=== PATIENT | male | born 1960 | race Caucasian/White ===

== ENCOUNTER → 2016-07-17 | Outpatient (CLI) | payer MEDICARE, MEDICAID ==
[~2016-07-17] MED LIST: ASPIRIN 32325 MG/TAB PO; FLEXERIL 1010 MG/TAB PO; FLUOXETINE20 MG PO; LIPI MAX1 SGL PO; LORTAB 5/500 501 TAB PO; MULTIPLE VITAMI1 CAP PO; PREDNISONE10 MG PO; VITAMINC1000TA
== END ==
LOC: MHCPAIN 10:02
DX: G89.29 Other chronic pain (principal); M47.817 Spondylosis without myelopathy or radiculopathy, lumbosacral region; M54.16 Radiculopathy, lumbar region
CPT/HCPCS: G0463

== ENCOUNTER → 2016-07-28 | Outpatient (CLI) | payer MEDICARE, MEDICAID | LOC: MHCPAIN 11:33 | DX: G89.29 Other chronic pain (principal); M47.27 Other spondylosis with radiculopathy, lumbosacral region; M48.06 Spinal stenosis, lumbar region; Z87.891 Personal history of nicotine dependence | CPT/HCPCS: G0463 ==

== ENCOUNTER → 2016-08-03 | Outpatient (CLI) | payer MEDICARE, MEDICAID | LOC: MHCPAIN 09:43 | DX: M47.27 Other spondylosis with radiculopathy, lumbosacral region (principal) | CPT/HCPCS: J1100; Q9967 ==

== ENCOUNTER 2016-08-31 14:00 | Outpatient (RCR) | payer MEDICARE, MEDICAID | END 2016-10-30 | disposition still patient (30) | LOC: MKS.ESL.PT | DX: M47.26 Other spondylosis with radiculopathy, lumbar region (principal); G89.29 Other chronic pain | CPT/HCPCS: G8978-GP; G8979-GP ==

== ENCOUNTER → 2016-09-04 | Outpatient (CLI) | payer MEDICARE, MEDICAID | LOC: MHCPAIN 10:09 | DX: G89.29 Other chronic pain (principal); M47.27 Other spondylosis with radiculopathy, lumbosacral region; M48.06 Spinal stenosis, lumbar region | CPT/HCPCS: G0463 ==

== ENCOUNTER → 2016-09-14 | Outpatient (CLI) | payer MEDICARE, MEDICAID | LOC: MHCPAIN 09:27 | DX: M47.817 Spondylosis without myelopathy or radiculopathy, lumbosacral region (principal) | CPT/HCPCS: J1100; Q9967 ==

== ENCOUNTER → 2016-11-14 | Outpatient (CLI) | payer MEDICARE, MEDICAID | LOC: MHCPAIN 10:26 | DX: G89.29 Other chronic pain (principal); M47.817 Spondylosis without myelopathy or radiculopathy, lumbosacral region; M54.16 Radiculopathy, lumbar region | CPT/HCPCS: G0463 ==

== ENCOUNTER → 2016-11-23 | Outpatient (CLI) | payer MEDICARE, MEDICAID | LOC: MHCPAIN 08:48 | DX: M47.817 Spondylosis without myelopathy or radiculopathy, lumbosacral region (principal); M48.06 Spinal stenosis, lumbar region | CPT/HCPCS: J1100; Q9967 ==

== ENCOUNTER → 2017-01-24 | Outpatient (CLI) | payer MEDICARE, MEDICAID | LOC: MHCPAIN 09:17 | DX: G89.29 Other chronic pain (principal); M47.27 Other spondylosis with radiculopathy, lumbosacral region; Z87.891 Personal history of nicotine dependence; Z79.82 Long term (current) use of aspirin | CPT/HCPCS: G0463 ==

== ENCOUNTER 2017-03-15 15:19 | Observation (INO) | payer MEDICARE, MEDICAID ==
[~2017-03-15] VITALS: Ht 175.3 cm; Wt 68.2 kg
[2017-03-15 16:28] VITALS: BP 109/65; PULSE 87
[2017-03-15 16:53] LABS: ADJUSTED CALCIUM 9.2 mg/dL (8.4-10.2); ALBUMIN 4.1 gm/dL (3.5-5.0); BILIRUBIN,TOTAL 0.5 mg/dL (0.0-1.0); CALCIUM 9.3 mg/dL (8.4-10.2); CREATININE, serum 0.84 mg/dL (0.66-1.25); POTASSIUM 3.9 mmol/L (3.4-5.0); TOTAL PROTEIN 6.8 gm/dL (6.4-8.2)
[2017-03-15 17:00] LABS: BASO % 0.4 % (0.0-2.0); EOS # 0.1 (0.0-0.7); EOS % 0.8 % (0-4.0); GRAN # 5.7 (1.4-6.5); GRAN % 79.3 % (42.2-75.2); LYMPH # 0.8 (1.2-3.4); LYMPH % 10.6 % (20.0-51.0); MEAN CELL VOLUME 79 fl (80.0-100.0); MEAN CORPUSCULAR HGB CONC 32 g/dl (33.0-37.0); MONO # 0.6 (0.1-0.6); MONO % 8.6 % (1.7-9.3); PLATELET COUNT 326 K/mm3 (130-400); RED BLOOD COUNT 4.23 M/mm3 (4.20-5.60); WHITE BLOOD COUNT 7.2 K/mm3 (4.8-10.8)
[2017-03-15 17:01] LABS: HEMATOCRIT 33.3 % (42.0-52.0); HEMOGLOBIN 10.6 g/dl (13.5-18.0); MEAN CORPUSCULAR HEMOGLOBIN 25 pg (27.0-31.0)
[2017-03-15 19:56] VITALS: BP 121/64; PULSE 85; TEMP 98.1
[2017-03-15 22:41] LABS: HEMATOCRIT 28.1 % (42.0-52.0); HEMOGLOBIN 8.9 g/dl (13.5-18.0)
[2017-03-16 04:14] LABS: HEMATOCRIT 25.9 % (42.0-52.0); HEMOGLOBIN 8.2 g/dl (13.5-18.0)
[2017-03-16 05:19] VITALS: BP 105/60; PULSE 67; TEMP 97.8
[2017-03-16 09:48] VITALS: BP 105/66; PULSE 60; TEMP 97.8
[2017-03-16 10:06] LABS: HEMATOCRIT 28.2 % (42.0-52.0); HEMOGLOBIN 8.9 g/dl (13.5-18.0)
[2017-03-16 13:24] VITALS: BP 110/68; PULSE 85; TEMP 98
[2017-03-16 15:30] VITALS: BP 121/69; PULSE 70; TEMP 97.8
[2017-03-16 16:56] LABS: HEMATOCRIT 28.7 % (42.0-52.0)
== END 2017-03-16 17:45 | disposition home or self-care (01) ==
LOC: COL.ER 15:19 → SURG 18:51
PROVIDERS: Physician Assistant; Surgery
DX: K62.5 Hemorrhage of anus and rectum (principal); I95.1 Orthostatic hypotension; E78.00 Pure hypercholesterolemia, unspecified; D64.9 Anemia, unspecified
CPT/HCPCS: G0378; J2405; J7030; J7042

== ENCOUNTER 2017-11-26 09:41 | Inpatient (IN) | payer OTHER ==
[~2017-11-26] VITALS: Ht 175.4 cm; Wt 70.7 kg
[2017-12-19] VITALS (10 sets, daily range): BP systolic 115–147; BP diastolic 68–93; PULSE 74–80; TEMP 97.3–97.6
[2017-12-19] MEDS ORDERED: TURMERIC500 MG PO (06:55)
[2017-12-19] MEDS ORDERED: VITAMIN C500 MG PO (06:55)
[2017-12-19] MEDS ORDERED: LIPITOR 40MG TA40 MG PO (06:56)
[2017-12-20 01:05] VITALS: BP 124/74; PULSE 64; TEMP 97.5
[2017-12-20 04:00] VITALS: BP 119/74; PULSE 80; TEMP 98.5
[2017-12-20 07:31] LABS: HEMATOCRIT 42.6 % (42.0-52.0); HEMOGLOBIN 14.2 g/dl (13.5-18.0)
[2017-12-20 07:48] LABS: CALCIUM 9.1 mg/dL (8.4-10.2); CREATININE, serum 0.87 mg/dL (0.66-1.25); POTASSIUM 4.3 mmol/L (3.4-5.0)
[2017-12-20 08:47] VITALS: BP 121/72; PULSE 65; TEMP 98
[2017-12-20 16:39] VITALS: BP 128/72; PULSE 67; TEMP 97.9
[2017-12-20 20:14] VITALS: BP 127/77; PULSE 89; TEMP 97.7
[2017-12-21 00:03] VITALS: BP 107/84; PULSE 75; TEMP 98.5
[2017-12-21 04:22] VITALS: BP 114/71; PULSE 74; TEMP 97.9
[2017-12-21 08:14] VITALS: BP 119/70; PULSE 70; TEMP 97.8
[2017-12-21 11:49] VITALS: BP 126/73; PULSE 71; TEMP 97.8
[2017-12-21 15:23] VITALS: BP 129/84; PULSE 64; TEMP 97.8
== END 2017-12-21 16:30 | disposition home or self-care (01) | DRG 331 ==
LOC: SURG 12-19 05:48 → INPTSU 12-19 05:48 → SURG 12-19 08:30
PROVIDERS: Surgery
PROC: 0DUP4JZ Supplement Rectum with Synthetic Substitute, Percutaneous Endoscopic Approach (ICD-10-PCS; 2017-12-19)
PROC: 8E0W4CZ Robotic Assisted Procedure of Trunk Region, Percutaneous Endoscopic Approach (ICD-10-PCS; 2017-12-19)
PROC: 0DQP4ZZ Repair Rectum, Percutaneous Endoscopic Approach (ICD-10-PCS; principal; 2017-12-19 08:30)
DX: K62.3 Rectal prolapse (principal)
CPT/HCPCS: A4314; A9284; C1781; J0360; J0690; J1100; J1885; J2250; J2405; J2704; J3010; J7120

== ENCOUNTER 2018-06-18 13:47 | Emergency (ER) | payer OTHER ==
[~2018-06-18] VITALS: Ht 172.7 cm; Wt 69.1 kg
[~2018-06-18 13:47] MED LIST changes: +LIPITOR 40MG TA40 MG PO; +TURMERIC500 MG PO; +VITAMIN C500 MG PO
[2018-06-18 13:54] VITALS: TEMP 97.6
[2018-06-18] MEDS ORDERED: ATARAX 25MG25 MG/TAB PO (14:25)
[2018-06-18 14:38] LABS: BASO % 0.6 % (0.0-2.0); EOS % 0.9 % (0-4.0); GRAN # 3.5 (1.4-6.5); GRAN % 74.7 % (42.2-75.2); HEMATOCRIT 46.3 % (42.0-52.0); HEMOGLOBIN 15.1 g/dl (13.5-18.0); LYMPH # 0.7 (1.2-3.4); LYMPH % 15.6 % (20.0-51.0); MEAN CELL VOLUME 87 fl (80.0-100.0); MEAN CORPUSCULAR HEMOGLOBIN 28 pg (27.0-31.0); MEAN CORPUSCULAR HGB CONC 33 g/dl (33.0-37.0); MONO # 0.4 (0.1-0.6); PLATELET COUNT 238 K/mm3 (130-400); RED BLOOD COUNT 5.32 M/mm3 (4.20-5.60)
[2018-06-18 14:41] LABS: COLLECTION METHOD CLEAN CATCH
[2018-06-18 14:46] LABS: ACETAMINOPHEN < 10 ug/mL (10-30); ALANINE AMINOTRANSFERASE 35 U/L (21-72); ALBUMIN 4.6 gm/dL (3.5-5.0); ALCOHOL(ethanol),MEDICAL < 10 mg/dL; ALKALINE PHOSPHATASE 90 U/L (50-136); ANION GAP 7 mmol/L (7-16); AST,SGOT 49 U/L (15-37); BILIRUBIN,TOTAL 0.5 mg/dL (0.0-1.0); BLOOD UREA NITROGEN 14 mg/dL (9-20); CALCIUM 10.2 mg/dL (8.4-10.2); CARBON DIOXIDE 31 mmol/L (22-30); CHLORIDE 100 mmol/L (98-107); CREATININE, serum 0.85 mg/dL (0.66-1.25); GLUCOSE 86 mg/dL (74-106); POTASSIUM 4.6 mmol/L (3.4-5.0); SALICYLATE 6.1 mg/dL; SODIUM 139 mmol/L (137-145); TOTAL PROTEIN 7.9 gm/dL (6.4-8.2)
[2018-06-18 14:46] LABS: PH 5 (5-8); SQUAMOUS EPITHELIAL None Seen /hpf; URINE APPEARANCE Clear; URINE BACTERIA None Seen /hpf; URINE BILIRUBIN Negative (NEGATIVE); URINE BLOOD Negative (NEGATIVE); URINE COLOR Straw; URINE GLUCOSE Negative (NEGATIVE); URINE KETONE Negative (NEGATIVE); URINE LEUKOCYTE ESTERASE Negative (NEGATIVE); URINE NITRATE Negative (NEGATIVE); URINE PROTEIN(semi-quant) Negative (NEGATIVE); URINE RBC None Seen /hpf; URINE UROBILINOGEN Negative (NEGATIVE)
[2018-06-18 15:02] LABS: TRICYCLIC ANTIDEPRESS URINE NEGATIVE
[2018-06-18 19:41] LABS: TSH w REFLEX 1.34 uIU/mL (0.465-4.680)
[2018-06-18 22:03] VITALS: BP 126/79; PULSE 68
== END 2018-06-18 22:03 ==
LOC: COL.ER 13:47
PROVIDERS: Emergency Medicine; Nurse Practitioner
DX: R45.851 Suicidal ideations (principal); F32.9 Major depressive disorder, single episode, unspecified; F43.10 Post-traumatic stress disorder, unspecified; F12.90 Cannabis use, unspecified, uncomplicated; E78.00 Pure hypercholesterolemia, unspecified; Z79.82 Long term (current) use of aspirin